=== PATIENT | female | born 1950 | race Hispanic/Latino ===

== ENCOUNTER 2018-03-27 07:50 | Day surgery (SDC) | payer MEDICARE ==
[2018-03-26 12:51] VITALS: BMI 20.6
--- NOTE | 2018-03-27 10:33 | CP.SDSHP ---
Same Day Surgery H & P - History Proposed Procedure: colonoscopy Pre-Op Diagnosis: screening - Allergies Allergies: Allergies Penicillins Allergy (Verified 03/26/18 12:50) RASH Sulfa (Sulfonamide Antibiotics) Allergy (Verified 03/26/18 12:51) FEVER - Physical Exam General Appearance: NAD Vital Signs: Vital Signs 03/27/18 08:16 Temperature 97.5 F L Pulse Rate 64 Respiratory 19 Rate Blood Pressure 123/82 O2 Sat by Pulse 100 Oximetry Mental Status: Alert & Oriented x3 Neuro: WNL Heart: WNL Lungs: WNL GI: WNL - {Optional Preform as Required} Abdomen: WNL - Impression Pt. Evaluated Today:Candidate for Anesthesia & Procedure: Yes - Date & Time Date: 03/27/18 Time: 10:33 Short Stay Discharge - Short Stay Discharge Admitting Diagnosis/Reason for Visit: ENCOUNTER FOR SCREENING FOR MALIGNANT NEOPLASM OF Disposition: HOME/ ROUTINE
[2018-03-27] MEDS ORDERED: Propofol 10 mg/ml Inj (20 ML) ONE ×2 (10:37→10:51)
[2018-03-27] MEDS ORDERED: Midazolam 2 MG/2 ML VIAL ONE (10:37)
[2018-03-27 11:18] VITALS: TEMP 96.8
[2018-03-27 11:27] VITALS: PULSE 58; O2SAT 97
[2018-03-27 12:44] VITALS: BP 123/71; RESP 12
== END 2018-03-27 12:20 | disposition home or self-care (01) ==
LOC: C.ENDO 07:50
PROVIDERS: ATTEND Internal Medicine Gastroenterology
DX: Z12.11 Encounter for screening for malignant neoplasm of colon (principal); D12.5 Benign neoplasm of sigmoid colon; K64.8 Other hemorrhoids
CPT/HCPCS: 45385; 88305; J2250; J2704